=== PATIENT | male | born 2000 | race Two or more races ===

== ENCOUNTER 2024-06-08 11:37 | Emergency (ER) | payer BC, SELFPAY ==
[2024-06-08] VITALS (7 sets, daily range): BP systolic 106–145; BP diastolic 68–85; PULSE 90–107; RESP 17–20; TEMP 37–37.2; O2SAT 95–99; BMI 27.8
[2024-06-08 11:53] LABS: Coronavirus 19, PCR Not Detected (NotDetected); Influenza B, PCR Not Detected (NotDetected)
--- NOTE | 2024-06-08 12:03 | HMH.EDGENADL ---
Discharge Plan Disposition Patient Disposition: Home, Self-Care Condition: Good Prescriptions Prescriptions: New oseltamivir [Tamiflu] 75 mg capsule 75 mg PO BID 5 Days Qty: 10 0RF ondansetron 4 mg tablet,disintegrating 4 mg PO QID PRN (Reason: nausea and vomiting) Qty: 10 0RF No Action pseudoephedrine-guaifenesin [Mucinex D Maximum Strength] 120-1,200 mg tablet extended release 12 hr 1 tab PO BIDP PRN (Reason: cough, congestion) ondansetron 4 mg tablet,disintegrating 4 mg translingual Q8HP PRN (Reason: Nausea And Vomiting) Patient Comments: DISSOLVE 1 TABLET ON THE TONGUE EVERY 8 HOURS NEEDED FOR NAUSEA OR VOMITING cefdinir 300 mg capsule 300 mg PO BID Patient Comments: TAKE 1 CAPSULE BY MOUTH TWICE DAILY WITH FOOD FOR 7 DAYS fluticasone propionate 50 mcg/actuation spray,suspension 2 spray INTRANASAL DAILY Patient Comments: ADMINISTER 2 SPRAYS INTO EACH NOSTRIL ONCE DAILY FOR CONGESTION AND SINUS PRESSURE Referrals Follow up/Referrals: Provider,Referral, MD [Primary Care Provider] - See instructions Activity Restrictions/Add. Instructions Additional Instructions/Restrictions: I recommend continuing taking Tylenol alternating every 4 hours with Motrin for the next 24 hours while you are awake to keep your symptoms under control. Please drink plenty of fluids and get plenty of rest. If you have any worsening signs or symptoms please follow-up with your PCP or return to the ER as needed. Clinical Impressions Clinical Impression: Influenza A, Acute dehydration Stand Alone Forms Stand Alone Forms: Work/School Release Print Language Print Language: Vietnamese Discharge ED Provider: Ana Gomez General Adult HPI <MAXIMILIANO Don - Last Filed: 06/08/24 15:06> General Chief complaint: Nausea/Vomiting/Diarrhea Stated complaint: Fever, vomiting, congestion, cant eat Time Seen by Provider: 06/08/24 12:03 History of Present Illness HPI narrative: Patient presents for evaluation of lightheadedness, nausea vomiting and diarrhea for the last 48 hours. Patient reports that he has a dry nonproductive cough and when he sits up he he reports that he is lightheaded. He has not been able to keep any lyaq-nal-jwcqcld medication down thus he presented to the emergency department for evaluation. Related Data Home Medications ?Medication ?Instructions ?Recorded ?Confirmed cefdinir 300 mg capsule 300 mg PO BID 06/08/24 06/08/24 fluticasone propionate 50 2 spray intranasal DAILY 06/08/24 06/08/24 mcg/actuation nasal spray,suspension ondansetron 4 mg disintegrating 4 mg translingual Q8HP PRN Nausea 06/08/24 06/08/24 tablet And Vomiting pseudoephedrine-guaifenesin ER 120 1 tab PO BIDP PRN cough, congestion 06/08/24 06/08/24 mg-1,200 mg tab,extend release 12hr (Mucinex D Maximum Strength) Previous Rx's ?Medication ?Instructions ?Recorded ondansetron 4 mg disintegrating 4 mg PO QID PRN nausea and 06/08/24 tablet vomiting #10 tabs oseltamivir 75 mg capsule (Tamiflu) 75 mg PO BID 5 days #10 caps 06/08/24 Allergies Allergy/AdvReac Type Severity Reaction Status Date / Time No Known Allergies Allergy Verified 06/08/24 11:51 [facility] <MAXIMILIANO Don - Last Filed: 06/08/24 15:06> [facility] Disclaimer: The information contained in this section may have been updated after the patient was seen, as this information can be updated by other users. Medical History (Updated 06/08/24 @ 14:00 by MAXIMILIANO Don) No significant past medical history Surgical History (Updated 06/08/24 @ 12:30 by Karen Jones RN) No history of previous surgery Social History (Updated 06/08/24 @ 15:06 by MAXIMILIANO Don) Smoking Status: Never smoker alcohol intake: never current occupational status: unemployed Travel in the last 8 weeks: None Have you lived/traveled outside [place] in past 30 days?: No Contact w/someone who lives/traveled outside [place] past 30 days?: No Exposure to someone with infectious disease in past 14 days?: No Do you have a fever (greater than 100.4 F or 38 C)?: Yes Have you tested positive for COVID-19: No Exposed to someone with COVID-19 in past 14 days?: No Do you have a sore throat?: No Do you have a cough?: Yes Do you have any weakness?: No Do you have any diarrhea?: No Are you experiencing any unusual bleeding?: No Do you have any muscle aches/pain?: Yes Do you have any abdominal pain?: No Are you experiencing loss of taste or smell?: No <MAXIMILIANO Don - Last Filed: 06/08/24 15:06> ROS Obtained: Yes Systems reviewed as appropriate & no additional complaints except as documented Physical Exam <MAXIMILIANO Don - Last Filed: 06/08/24 15:06> General General appearance: alert and in no apparent distress Respiratory Respiratory exam: Present normal lung sounds bilaterally Cardiovascular Cardiovascular exam: Present regular rate Neurological Exam Neurological exam: Present alert and oriented X3 Medical Decision Making <MAXIMILIANO Don - Last Filed: 06/08/24 15:06> Medical Records Medical records reviewed: Yes I reviewed the patient's medical records. Screening: Per USPSTF and CDC recommendations, given the prevalence of disease in our region, it is our hospital?s policy to screen for HIV and viral Hepatitis for all patients aged 18 and over and those with ongoing risk factors. Galo Inquiry Pt receiving controlled substance: No Vital Signs: 06/08/24 11:39 06/08/24 11:43 06/08/24 12:06 Temperature 98.9 F Temperature Source Oral Pulse Rate 105 H Pulse Rate [Right] 105 H Respiratory Rate 17 Blood Pressure 145/81 H 106/85 L Blood Pressure [Right Arm] 145/81 H Blood Pressure Mean 88 Blood Pressure Mean [Right Arm] 102 Blood Pressure Source [Right Arm] Automatic Cuff 02 Sat by Pulse Oximetry 98 99 Oxygen Delivery Method Room Air 06/08/24 12:15 06/08/24 12:30 06/08/24 12:45 Temperature Temperature Source Pulse Rate 107 H 102 H 107 H Pulse Rate [Right] Respiratory Rate Blood Pressure 108/68 L 108/68 L Blood Pressure [Right Arm] Blood Pressure Mean Blood Pressure Mean [Right Arm] Blood Pressure Source [Right Arm] 02 Sat by Pulse Oximetry 95 96 98 Oxygen Delivery Method 06/08/24 14:19 Temperature 98.6 F Temperature Source Oral Pulse Rate 90 Pulse Rate [Right] Respiratory Rate 20 Blood Pressure 133/80 Blood Pressure [Right Arm] Blood Pressure Mean Blood Pressure Mean [Right Arm] Blood Pressure Source [Right Arm] 02 Sat by Pulse Oximetry Oxygen Delivery Method Room Air Lab Data Lab results reviewed: Yes I reviewed the patient's lab results. Lab Results 06/08/24 11:53: SARS-CoV-2 (PCR) Not detected, Influenza A Untype (PCR) Detected A, Influenza Type B (PCR) Not detected 06/08/24 13:05: HCV Ab [place] w/Rflx PCR Qn Negative, HIV Ag/Ab Combo Qual Negative Orders (Tests/Meds): ED MEDICATIONS Discontinued Medications Generic Name Dose Route Start Last Admin Trade Name Freq PRN Reason Stop Dose Admin Acetaminophen 1,000 mg 06/08/24 12:23 06/08/24 12:45 Acetaminophen 1,000mg/100ml Vial IV 06/08/24 12:24 1,000 mg ONCE ONE Administration Sodium Chloride 1,000 mls @ 999 mls/hr 06/08/24 12:23 06/08/24 12:45 Sod Chlor 0.9% 1000ml Bag IV 06/08/24 13:23 999 mls/hr .Q1H1M ONE Administration Ibuprofen 800 mg 06/08/24 12:23 06/08/24 12:44 Ibuprofen 400 Mg Tablet PO 06/08/24 12:24 800 mg ONCE ONE Administration Oseltamivir Phosphate 75 mg 06/08/24 12:24 06/08/24 12:44 Oseltamivir 75mg Capsule PO 06/08/24 12:25 75 mg ONCE ONE Administration ORDERS Category Date Time Status HIV Combo Stat Lab 06/08/24 13:05 Completed Hepatitis C Ab Qual. W/ RFX Stat Lab 06/08/24 13:05 Completed Rapid PCR Covid and Flu A/B Stat Lab 06/08/24 11:53 Completed Medical Decision Narrative: In summary patient is a 23-year-old male who presents to the emergency department for evaluation of cough nausea vomiting diarrhea. Patient is initially normotensive at 145/81 tachycardic with heart rate of 105 with sinus tachycardia the bedside monitor breathing 17 times a minute satting at 98% on room air upon arrival, with a temperature currently of 98.9. Physical exam reveals pupils equal round reactive to light, [place] Coma Score 15, cranial nerves II through XII are intact to exam, posterior pharynx is erythematous without exudate, patient is no cervical lymphadenopathy, breath sounds clear and equal bilaterally to the bases without adventitious sounds or increased work of breathing, abdomen soft nontender no rebound or guarding no rigidity. And having the patient rise from a supine position to sitting for his exam his heart rate went up to around 120 while the patient reported dizziness. He reported improvement when he lie down. Dizziness does not occur when supine but his heart rate decline down to around 100.. Differential diagnosis includes upper or lower respiratory tract infection versus dehydration versus low static hypotension versus peripheral vertigo. Initial workup will be conducted with COVID and flu swabs for now as patient has no red flags other than malaise fatigue cough nausea vomit diarrhea after shared decision-making discussion and patient would prefer no laboratory stick. Initial interventions include initially Tylenol and ibuprofen Zofran. Initial workup reviewed by me shows patient is influenza A positive. Upon repeat evaluation patient reported still symptomatic and still felt nauseated. Given this I have recommended that the patient received a liter of IV fluids as he still remains tachycardic upon sitting. Patient verbalized agreement and understanding and assented to IV fluids. Given this I have ordered a liter bolus of normal saline. After normal saline bolus completed patient reevaluated and his heart rate did come down to 90 and he is tolerating oral intake. Given this patient is discharged with prescription for Tamiflu with first dose given here. <Ana Gomez MD - Last Filed: 06/08/24 15:47> Vital Signs: 06/08/24 11:39 06/08/24 11:43 06/08/24 12:06 Temperature 98.9 F Temperature Source Oral Pulse Rate 105 H Pulse Rate [Right] 105 H Respiratory Rate 17 Blood Pressure 145/81 H 106/85 L Blood Pressure [Right Arm] 145/81 H Blood Pressure Mean 88 Blood Pressure Mean [Right Arm] 102 Blood Pressure Source [Right Arm] Automatic Cuff 02 Sat by Pulse Oximetry 98 99 Oxygen Delivery Method Room Air 06/08/24 12:15 06/08/24 12:30 06/08/24 12:45 Temperature Temperature Source Pulse Rate 107 H 102 H 107 H Pulse Rate [Right] Respiratory Rate Blood Pressure 108/68 L 108/68 L Blood Pressure [Right Arm] Blood Pressure Mean Blood Pressure Mean [Right Arm] Blood Pressure Source [Right Arm] 02 Sat by Pulse Oximetry 95 96 98 Oxygen Delivery Method 06/08/24 14:19 Temperature 98.6 F Temperature Source Oral Pulse Rate 90 Pulse Rate [Right] Respiratory Rate 20 Blood Pressure 133/80 Blood Pressure [Right Arm] Blood Pressure Mean Blood Pressure Mean [Right Arm] Blood Pressure Source [Right Arm] 02 Sat by Pulse Oximetry Oxygen Delivery Method Room Air Lab Data Lab Results 06/08/24 11:53: SARS-CoV-2 (PCR) Not detected, Influenza A Untype (PCR) Detected A, Influenza Type B (PCR) Not detected 06/08/24 13:05: HCV Ab [place] w/Rflx PCR Qn Negative, HIV Ag/Ab Combo Qual Negative Orders (Tests/Meds): ED MEDICATIONS Discontinued Medications Generic Name Dose Route Start Last Admin Trade Name Freq PRN Reason Stop Dose Admin Acetaminophen 1,000 mg 06/08/24 12:23 06/08/24 12:45 Acetaminophen 1,000mg/100ml Vial IV 06/08/24 12:24 1,000 mg ONCE ONE Administration Sodium Chloride 1,000 mls @ 999 mls/hr 06/08/24 12:23 06/08/24 12:45 Sod Chlor 0.9% 1000ml Bag IV 06/08/24 13:23 999 mls/hr .Q1H1M ONE Administration Ibuprofen 800 mg 06/08/24 12:23 06/08/24 12:44 Ibuprofen 400 Mg Tablet PO 06/08/24 12:24 800 mg ONCE ONE Administration Oseltamivir Phosphate 75 mg 06/08/24 12:24 06/08/24 12:44 Oseltamivir 75mg Capsule PO 06/08/24 12:25 75 mg ONCE ONE Administration ORDERS Category Date Time Status HIV Combo Stat Lab 06/08/24 13:05 Completed Hepatitis C Ab Qual. W/ RFX Stat Lab 06/08/24 13:05 Completed Rapid PCR Covid and Flu A/B Stat Lab 06/08/24 11:53 Completed Medical Decision Narrative: In summary patient is a 23-year-old male who presents to the emergency department for evaluation of cough nausea vomiting diarrhea. Patient is initially normotensive at 145/81 tachycardic with heart rate of 105 with sinus tachycardia the bedside monitor breathing 17 times a minute satting at 98% on room air upon arrival, with a temperature currently of 98.9. Physical exam reveals pupils equal round reactive to light, [place] Coma Score 15, cranial nerves II through XII are intact to exam, posterior pharynx is erythematous without exudate, patient is no cervical lymphadenopathy, breath sounds clear and equal bilaterally to the bases without adventitious sounds or increased work of breathing, abdomen soft nontender no rebound or guarding no rigidity. And having the patient rise from a supine position to sitting for his exam his heart rate went up to around 120 while the patient reported dizziness. He reported improvement when he lie down. Dizziness does not occur when supine but his heart rate decline down to around 100.. Differential diagnosis includes upper or lower respiratory tract infection versus dehydration versus low static hypotension versus peripheral vertigo. Initial workup will be conducted with COVID and flu swabs for now as patient has no red flags other than malaise fatigue cough nausea vomit diarrhea after shared decision-making discussion and patient would prefer no laboratory stick. Initial interventions include initially Tylenol and ibuprofen Zofran. Initial workup reviewed by me shows patient is influenza A positive. Upon repeat evaluation patient reported still symptomatic and still felt nauseated. Given this I have recommended that the patient received a liter of IV fluids as he still remains tachycardic upon sitting. Patient verbalized agreement and understanding and assented to IV fluids. Given this I have ordered a liter bolus of normal saline. After normal saline bolus completed patient reevaluated and his heart rate did come down to 90 and he is tolerating oral intake. Given this patient is discharged with prescription for Tamiflu with first dose given here. I was consulted by the ELIZABETH, and we discussed the complexity of problems being addressed. I approved the treatment and management plan for this patient's care in the emergency department, thus performing a substantial portion of the medical decision making. Ana Gomez MD Critical Care <MAXIMILIANO Don - Last Filed: 06/08/24 15:06> Critical Care Time Critical Care Time: No
[2024-06-08 12:19] LABS: Influenza A, PCR Detected (NotDetected)
[2024-06-08] MEDS: IBUPROFEN 400 MG TABLET 800 MG PO (12:44)
[2024-06-08] MEDS: OSELTAMIVIR 75MG CAPSULE 75 MG PO (12:44)
[2024-06-08] MEDS: 0.9 % SODIUM CHLORIDE 1000ML 1,000 ML 999 ML IV (12:45)
[2024-06-08] MEDS: ACETAMINOPHEN 1,000MG/100ML VIAL 1000 MG IV (12:45)
[2024-06-08 14:32] LABS: HIV Combo NEGATIVE (Negative)
[2024-06-08 14:41] LABS: Hepatitis C Ab Qual. W/ RFX NEGATIVE (Negative)
== END 2024-06-08 14:20 | disposition home or self-care (01) ==
PROVIDERS: Physician Assistant; Emergency Provider Student in an Organized Health Care Education/Training Program
DX: J09.X2 Influenza due to identified novel influenza A virus with other respiratory manifestations (principal); E86.0 Dehydration
CPT/HCPCS: 86803; 87389; 87636; 96361; 96374; 99284; J0131; J7030